=== PATIENT | female | born 1955 | race Two or more races ===

== ENCOUNTER 2019-05-10 19:54 | Emergency (ER) | payer OTHER ==
--- NOTE | 2019-05-10 20:00 | PDOC ---
Rapid Medical Evaluation Time Seen by Provider: 05/10/19 19:55 Medical Evaluation: Allergies Allergy/AdvReac Type Severity Reaction Status Date / Time No Known Allergies Allergy Verified 10/29/12 17:00 05/10/19 19:56 HPI: R ankle and lower leg pain after a fall yesterday, did not hit head; PE: No gross deficits blister R lateral ankle and lower leg ORDERS: x-rays Discharge Disposition - Diagnosis Leg pain - Referrals - Patient Instructions - Post Discharge Activity
[2019-05-10 20:02] VITALS: TEMP 98.7; BMI 32.3
--- NOTE | 2019-05-10 22:44 | PDOC ---
*Physical Exam - Vital Signs Last Vital Signs Temp Pulse Resp BP Pulse Ox 98.7 F 125 H 20 129/100 05/10/19 19:58 05/10/19 19:58 05/10/19 19:58 05/10/19 19:58 Medical Decision Making - Medical Decision Making 05/10/19 22:44 Patient seen by the advanced practice provider under my direct supervision. Ancillary testing reviewed as necessary. I agree with plan as outlined by the advanced practice provider. *DC/Admit/Observation/Transfer Diagnosis at time of Disposition: Closed right fibular fracture Qualifiers: Encounter type: initial encounter Fibula location: distal Fracture morphology: other fracture Qualified Code(s): S82.831A - Other fracture of upper and lower end of right fibula, initial encounter for closed fracture - Discharge Dispostion Disposition: HOME - Referrals Referrals: Heriberto Rivers MD [Staff Physician] - Call tomorrow - Patient Instructions Printed Discharge Instructions: How to Prevent Falls Additional Instructions: elevate your legs above the level of your heart when laying and sitting Non weight bear the leg, use crutches with walking you may take tylenol for pain follow up with an orthopedic doctor as soon as possible. return to the ER for any worsening symptoms. - Post Discharge Activity Forms/Work/School Notes: Back to Work
--- NOTE | 2019-05-10 23:04 | PDOC ---
History of Present Illness - General Chief Complaint: Injury Stated Complaint: INJURY Time Seen by Provider: 05/10/19 19:55 History Source: Patient - History of Present Illness Initial Comments: 05/10/19 23:27 63-year-old female with past medical history of hypertension complaining of trip and fall reporting [place]. Patient reports that since the injury patient has been weightbearing and walking up and down the stairs. Today with increased swelling to the right ankle with blistering where the shoes were rubbing against the ankle. Patient has sensation. Past History - Past Medical History Allergies/Adverse Reactions: Allergies Allergy/AdvReac Type Severity Reaction Status Date / Time No Known Allergies Allergy Verified 05/10/19 20:01 COPD: No - Suicide/Smoking/Psychosocial Hx Smoking Status: No Smoking History: Never smoked Number of Cigarettes Smoked Daily: 0 *Physical Exam - Vital Signs Last Vital Signs Temp Pulse Resp BP Pulse Ox 98.7 F 125 H 20 129/100 05/10/19 19:58 05/10/19 19:58 05/10/19 19:58 05/10/19 19:58 - Physical Exam General Appearance: Yes: Appropriately Dressed Respiratory/Chest: positive: Lungs Clear Extremity: positive: Other (swelling to right lower extremity/ ankle and foot, blisters to anterior portion of ankle due to friction from shoe. + senaation to toes, able to wiggle toes, foot warm to touch.) Neurologic: positive: Fully Oriented, Alert Procedures - Splinting Splint Location: Right: Ankle (posterior ankle splint) Hand-Made Type: orthoglass Post-Proc Neuro Vasc Exam: normal Fritz Bandage: 6" Complications: No Progress: 05/11/19 00:16 able to crutch walk ED Treatment Course - RADIOLOGY Radiology Studies Ordered: Category Date Time Status DUPLEX VASCUL US-1 LEG [US] Stat Ultrasound 05/10/19 23:03 Ordered Progress Note - Progress Note Progress Note: A: right fib fracture P: xray right distal fib fracture US: no dvt ortho follow up discussed see procedure note Medical Decision Making - Medical Decision Making 05/11/19 00:15 patient crutch walked without difficulty. patient is going to [facility] house due to stairs at her house. *DC/Admit/Observation/Transfer Diagnosis at time of Disposition: Closed right fibular fracture Qualifiers: Encounter type: initial encounter Fibula location: distal Fracture morphology: other fracture Qualified Code(s): S82.831A - Other fracture of upper and lower end of right fibula, initial encounter for closed fracture - Discharge Dispostion Disposition: HOME - Referrals Referrals: Heriberto Rivers MD [Staff Physician] - Call tomorrow - Patient Instructions Printed Discharge Instructions: How to Prevent Falls Additional Instructions: elevate your legs above the level of your heart when laying and sitting Non weight bear the leg, use crutches with walking you may take tylenol for pain follow up with an orthopedic doctor as soon as possible. return to the ER for any worsening symptoms. - Post Discharge Activity Forms/Work/School Notes: Back to Work
[2019-05-11] MEDS ORDERED: ACETAMINOPHEN 500 MG TABLET (FP) PO ONE (00:10)
[2019-05-11] MEDS ORDERED: ACETAMINOPHEN 500 MG TABLET (FP) ONE (00:15)
[2019-05-11 00:19] VITALS: BP 116/71; PULSE 90
== END 2019-05-11 00:22 | disposition home or self-care (01) ==
LOC: JER 19:54
PROC: 2W3QX1Z Immobilization of Right Lower Leg using Splint (ICD-10-PCS; principal; 2019-05-10)
DX: S82.831A Other fracture of upper and lower end of right fibula, initial encounter for closed fracture (principal); W01.0XXA Fall on same level from slipping, tripping and stumbling without subsequent striking against object, initial encounter; Y93.89 Activity, other specified; Y92.89 Other specified places as the place of occurrence of the external cause; I10 Essential (primary) hypertension
CPT/HCPCS: 73590-TC-RT-FY; 73610-TC-RT-FY; 73630-TC-RT-FY; 93971-TC; 99282-25

== ENCOUNTER 2019-05-13 13:10 | Inpatient (IN) | payer OTHER ==
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
[2019-05-13 14:43] LABS: BASO % 2.6 % (0-2.0); HEMATOCRIT 37.1 % (32.4-45.2); MCH 28.9 pg (25.7-33.7); MCHC 32.3 g/dl (32.0-36.0); MEAN CELL VOLUME 89.6 fl (80-96); MEAN PLT VOLUME 8.6 fl (7.5-11.1); MONO % 10.8 % (3.8-10.2); NEUT % 65.6 % (42.8-82.8); PLATELET COUNT 257 K/MM3 (134-434); RBC 4.14 M/mm3 (3.60-5.2); RDW 12.8 % (11.6-15.6); WHITE BLOOD COUNT 9.1 K/mm3 (4.0-10.8)
[2019-05-13] MEDS ORDERED: DIPHTH,PERTUSS(ACELL),TET 0.5 ML DISP.SYRIN IM ONE ×2 (14:46→15:07)
[2019-05-13 14:47] LABS: INR 1.18 (0.82-1.09); PROTHROMBIN TIME (PATIENT) 13.2 SEC (10.2-13.0)
[2019-05-13 15:28] LABS: ALBUMIN 3.5 g/dl (3.4-5.0); BILIRUBIN,TOTAL 0.7 mg/dl (0.2-1); CREATININE 0.5 mg/dl (0.55-1.3); POTASSIUM 4.3 mmol/L (3.5-5.1); TOT PROT 6.8 g/dl (6.4-8.2)
--- NOTE | 2019-05-13 15:43 | HP ---
CHIEF COMPLAINT: Right ankle pain, swelling, blistering PCP: HISTORY OF PRESENT ILLNESS: 63 year-old female with no reported PMH as she does not see a health care provider regularly. On 05/09/19 patient tripped and fell while walking in a park and felt immediate pain to her right ankle. She did not seek immediate care and continued to walk/weight bear on the ankle. On 05/10, patient presented to the [facility] ED and it was noted at that time that she had a blister on her right lateral ankle and lower leg which the patient attributed to friction from her shoe. Xray showed a distal fibular fracture with lateral swelling, and no soft tissue air. Duplex was negative for RLE DVT. The RLE was wrapped with justice bandage, patient was given crutches, told not to weight bear, and to follow up with an orthopedist. Patient continued wo walk/weight bear on the RLE on on she saw ortho Dr. Riddle in his office. He observed moderate to severe swelling with blood blisters both medially and laterally about the ankle. He treated her and then referred her to the [place] ED for admission as patient was unable to protect her ankle and given the risk of skin breakdown and infection. ER course was notable for: (1) CT RLE: trimalleolar fracture of the right ankle with comminuted distal fibular fracture and chip fractures of the medial and posterior malleoli; no evidence of subq emphysema Recent Travel: No PAST MEDICAL HISTORY: None reported PAST SURGICAL HISTORY: None reported Social History: Smoking: Alcohol: Drugs: Allergies No Known Allergies Allergy (Verified 05/13/19 13:11) HOME MEDICATIONS: REVIEW OF SYSTEMS CONSTITUTIONAL: Absent: fever, chills, diaphoresis, generalized weakness, malaise, loss of appetite, weight change HEENT: Absent: rhinorrhea, nasal congestion, throat pain, throat swelling, difficulty swallowing, mouth swelling, ear pain, eye pain, visual changes CARDIOVASCULAR: Absent: chest pain, syncope, palpitations, irregular heart rate, lightheadedness , peripheral edema RESPIRATORY: Absent: cough, shortness of breath, dyspnea with exertion, orthopnea, wheezing, stridor, hemoptysis GASTROINTESTINAL: Absent: abdominal pain, abdominal distension, nausea, vomiting, diarrhea, constipation, melena, hematochezia GENITOURINARY: Absent: dysuria, frequency, urgency, hesitancy, hematuria, flank pain, genital pain MUSCULOSKELETAL: +pain RLE Absent: myalgia, arthralgia, joint swelling, back pain, neck pain SKIN: +blisters right ankle, circumferential Absent: rash, itching, pallor HEMATOLOGIC/IMMUNOLOGIC: Absent: easy bleeding, easy bruising, lymphadenopathy, frequent infections ENDOCRINE: Absent: unexplained weight gain, unexplained weight loss, heat intolerance, cold intolerance NEUROLOGIC: Absent: headache, focal weakness or paresthesias, dizziness, unsteady gait, seizure, mental status changes, bladder or bowel incontinence PSYCHIATRIC: Absent: anxiety, depression, suicidal or homicidal ideation, hallucinations. PHYSICAL EXAMINATION Vital Signs - 24 hr 05/13/19 13:10 Temperature 97.8 F Pulse Rate 89 Respiratory 16 Rate Blood Pressure 123/83 O2 Sat by Pulse 98 Oximetry (%) GENERAL: Awake, alert, and fully oriented, in no acute distress. HEAD: Normal with no signs of trauma. EYES: Pupils equal, round and reactive to light, extraocular movements intact, sclera anicteric, conjunctiva clear. No lid lag. LUNGS: Breath sounds equal, clear to auscultation bilaterally. No wheezes, and no crackles. No accessory muscle use. HEART: Regular rate and rhythm, normal S1 and S2 ABDOMEN: Soft, nontender, not distended UPPER EXTREMITIES: 2+ pulses, warm, well-perfused. No cyanosis. No clubbing. No peripheral edema. LLE: 2+ pulses, warm, well-perfused. No calf tenderness. No peripheral edema. RLE: severe swelling entire foot and ankle, warm NEUROLOGICAL: Cranial nerves II-XII intact. Normal speech. Normal gait. PSYCHIATRIC: Cooperative. Good eye contact. Appropriate mood and affect. SKIN: Warm, dry, normal turgor, no rashes or lesions noted, normal capillary refill. Laboratory Results - last 24 hr 05/13/19 05/13/19 14:20 14:20 WBC 9.1 RBC 4.14 Hgb 12.0 Hct 37.1 MCV 89.6 MCH 28.9 MCHC 32.3 RDW 12.8 Plt Count 257 MPV 8.6 Absolute Neuts (auto) 5.9 Neutrophils % 65.6 Lymphocytes % 19.0 Monocytes % 10.8 H Eosinophils % 2.0 Basophils % 2.6 H PT with INR 13.2 H INR 1.18 ASSESSMENT/PLAN: 63 year-old female with no reported PMH as she does not see a health care provider regularly. Admitted for right ankle/fib fracture. Right trimalleolar fracture with comminuted distal fibular fracture Severe swelling Large fluid-filled blisters --no weight bearing --concern for infection, start empiric Zosyn, Vanc, ID to follow --vascular consult placed for Dr. Arreola --ortho Dr. Riddle following Visit type - Emergency Visit Emergency Visit: Yes ED Registration Date: 05/13/19 Care time: The patient presented to the Emergency Department on the above date and was hospitalized for further evaluation of their emergent condition. - New Patient This patient is new to me today: Yes Date on this admission: 05/16/19 - Critical Care Critical Care patient: No
--- NOTE | 2019-05-13 16:17 | CON.ID ---
Consult Consult Specialty:: infectious diseases Referred by:: kaycee Siddiqui Reason for Consultation:: r/o infected blisters on the leg - History of Present Illness Chief Complaint: pain swelling and blister formation of the foot History of Present Illness: 63-year-old female diagnosed with a lateral malleolar fracture at [facility] emergency department earlier in the week. She was discharged home with crutches. She walked on the ankle since being discharged. Patient noticed increasing itching and discomfort in the ankle. patient then went to the office and was c/o of severe pain . Her splint was removed demonstrating moderate to severe swelling with blood blisters both medially and laterally about the ankle. She denies any numbness or tingling. patient then cam to mariya freddy because the pain was severe and patient not able to bear weight on it she also has developed swelling of the leg and huge blisters which looks like blood filled - History Source History Provided By: Patient Limitations to Obtaining History: No Limitations - Alcohol/Substance Use Hx Alcohol Use: No - Smoking History Smoking history: Never smoked Have you smoked in the past 12 months: No Aproximately how many cigarettes per day: 0 Home Medications - Allergies Allergies/Adverse Reactions: Allergies Allergy/AdvReac Type Severity Reaction Status Date / Time No Known Allergies Allergy Verified 05/13/19 13:11 Review of Systems - Review of Systems Constitutional: reports: No Symptoms Eyes: reports: No Symptoms HENT: reports: No Symptoms Cardiovascular: reports: No Symptoms Respiratory: reports: No Symptoms Gastrointestinal: reports: No Symptoms Genitourinary: reports: No Symptoms Breasts: reports: No Symptoms Reported Musculoskeletal: reports: Joint Swelling, Muscle Pain, Other Integumentary: reports: Blister, Change in Color, Erythema Neurological: reports: No Symptoms Endocrine: reports: No Symptoms Hematology/Lymphatic: reports: No Symptoms Psychiatric: reports: No Symptoms Physical Exam Vital Signs: Vital Signs Temperature 97.8 F 05/13/19 13:10 Pulse Rate 89 05/13/19 13:10 Respiratory Rate 16 05/13/19 13:10 Blood Pressure 123/83 05/13/19 13:10 O2 Sat by Pulse Oximetry (%) 98 05/13/19 13:10 Constitutional: Yes: Well Nourished, Calm, Moderate Distress Eyes: Yes: Conjunctiva Clear HENT: Yes: Atraumatic, Normocephalic Neck: Yes: Supple, Trachea Midline Cardiovascular: Yes: Regular Rate and Rhythm Respiratory: Yes: Regular, CTA Bilaterally Gastrointestinal: Yes: Normal Bowel Sounds, Soft Musculoskeletal: Yes: Other Extremities: Yes: Erythema, Other Integumentary: Yes: Erythema, Other (blisters and swelling of the ankle) Neurological: Yes: Alert, Oriented Psychiatric: Yes: Alert, Oriented Labs: CBC, BMP 05/13/19 14:20 05/13/19 14:20 Imaging - Results Chest X-ray: Report Reviewed, Image Reviewed Assessment/Plan rt ankle fracture with blister formation we will wait for ct scan to occur i am worried that the patient might have displaced fracture going to give abx prophylactically once final plan is made can stop the abx and monitor
--- NOTE | 2019-05-13 16:24 | PN ---
Progress Note (short form) - Note Progress Note: 63-year-old female was seen earlier today in the office. Patient had been diagnosed with a lateral malleolar fracture at [facility] emergency department earlier in the week. She was discharged home with crutches. She walked on the ankle since being discharged. She notes increasing itching and discomfort in the ankle. On presenting to the office today, she was screaming in pain. Her splint was removed demonstrating moderate to severe swelling with blood blisters both medially and laterally about the ankle. She denies any numbness or tingling. In the office, she was placed into a very well-padded AO type splint after dressing her wounds with Xeroform dressing. Given that she was unable to protect her ankle and given the risk of skin breakdown at this time, it was felt that admission was the only way to adequately treat her. Radiographs were taken after splinting to ensure that the ankle is in a satisfactory position. Physical examination: The patient is now seen to have a AO type splint in place. Her toes have sensation, capillary refill and motion intact. Assessment: Unstable right ankle fracture Skin breakdown with blood blisters Patient unable to safely mobilize Plan: I discussed today's findings with the patient. I advised her that her skin is more damaged then the actual bony structures within the ankle. I do anticipate that the ankle will require open reduction internal fixation however, she is not safe to do so at this time. She is to be strictly nonweightbearing. She will require wound care every other day. We will plan on Thursday to take down her dressings and inspect her wounds. She will likely require 2-3 weeks of care before being safe to proceed with surgery. She may require a stay in a SNF prior to surgery given her limited ability to protect herself while weightbearing. She should start on physical therapy to help her mobilize independently. When not mobilizing, she should be elevating the limb on a pillow.
[2019-05-13] MEDS ORDERED: VANCOMYCIN 1,000 MG VIAL (RESTRICTED TO ID ONLY) ONE (16:25)
[2019-05-13] MEDS ORDERED: VANCOMYCIN 500 MG VIAL (RESTRICTED TO ID ONLY) ONE (16:25)
[2019-05-13] MEDS: VANCOMYCIN HCL 1,250 MG in DEXTROSE 5%-WATER - 250 ML IVPB SCH (16:55)
[2019-05-13 17:38] VITALS: BMI 32.9
[2019-05-13] MEDS ORDERED: DEXTROSE 5%-WATER - 50 ML IVPB ONE (18:43)
[2019-05-13] MEDS ORDERED: PIPERACILLIN/TAZOBACTAM 3.375 GM VIAL IVPB ONE (18:43)
[2019-05-13] MEDS: ENOXAPARIN NA (PORCINE) 40 MG/0.4 ML DISP.SYRIN SQ SCH ×2 (18:49→22:23)
[2019-05-13] MEDS: PIPERACILLIN/TAZOB 3.375 GM 3.375 GM in DEXTROSE 5%-WATER - 50 ML IVPB SCH (18:49)
[2019-05-14] MEDS ORDERED: PIPERACILLIN/TAZOBACTAM 3.375 GM VIAL IVPB ONE ×3 (01:59→17:23)
[2019-05-14] MEDS ORDERED: DEXTROSE 5%-WATER - 50 ML IVPB ONE ×3 (01:59→17:23)
[2019-05-14] MEDS: PIPERACILLIN/TAZOB 3.375 GM 3.375 GM in DEXTROSE 5%-WATER - 50 ML IVPB SCH ×3 (02:25→17:30)
[2019-05-14 08:53] LABS: BASO % 0.3 % (0-2.0); EOS % 7.2 % (0-4.5); HEMATOCRIT 34.7 % (32.4-45.2); HEMOGLOBIN 11.4 GM/dl (10.7-15.3); LYMPH % 21.2 % (8-40); MCH 29.2 pg (25.7-33.7); MCHC 32.9 g/dl (32.0-36.0); MEAN CELL VOLUME 88.7 fl (80-96); MEAN PLT VOLUME 8.8 fl (7.5-11.1); MONO % 10.5 % (3.8-10.2); NEUT % 60.8 % (42.8-82.8); PLATELET COUNT 261 K/MM3 (134-434); RBC 3.91 M/mm3 (3.60-5.2); RDW 12.7 % (11.6-15.6); WHITE BLOOD COUNT 7.2 K/mm3 (4.0-10.8)
[2019-05-14 08:57] LABS: BILIRUBIN,TOTAL 0.6 mg/dl (0.2-1); CALCIUM 8.7 mg/dl (8.5-10); CREATININE 0.5 mg/dl (0.55-1.3); MAGNESIUM 2.2 mg/dL (1.8-2.4); POTASSIUM 4.2 mmol/L (3.5-5.1); TOT PROT 5.8 g/dl (6.4-8.2)
[2019-05-14 09:22] LABS: ACTIVATED PTT 32.1 SECONDS (25.2-36.5)
[2019-05-14 09:27] LABS: INR 1.18 (0.82-1.09); PROTHROMBIN TIME (PATIENT) 13.2 SEC (10.2-13.0)
[2019-05-14] MEDS: ENOXAPARIN NA (PORCINE) 40 MG/0.4 ML DISP.SYRIN SQ SCH (09:39)
--- NOTE | 2019-05-14 09:56 | PN ---
Progress Note, Physician Chief Complaint: Rt ankle pain - Current Medication List Current Medications: Active Medications Enoxaparin Sodium (Lovenox -) 40 mg SQ DAILY NINOSKA Last Admin: 05/14/19 09:39 Dose: 40 mg Vancomycin HCl 1,250 mg/ (Dextrose) 250 mls @ 250 mls/2 hr IVPB Q24H NINOSKA; Protocol Last Admin: 05/13/19 16:55 Dose: 250 mls/2 hr Piperacillin Sod/Tazobactam (Sod 3.375 gm/ Dextrose) 50 mls @ 100 mls/hr IVPB Q8H-IV NINOSKA; Protocol Last Admin: 05/14/19 09:38 Dose: 100 mls/hr - Objective Vital Signs: Vital Signs Temperature 98.0 F 05/14/19 06:00 Pulse Rate 83 05/14/19 06:00 Respiratory Rate 16 05/14/19 07:56 Blood Pressure 123/71 05/14/19 06:00 O2 Sat by Pulse Oximetry (%) 98 05/14/19 07:56 Middle aged F not in distress HEENT: Mm moist, no anemia, PERRLA EOMI NECK: No JVd No Bruit CHEST: CTA B/L CVs; s1S2 R no m/g/r ABD: No distention, non tender EXT: Rt ankle swelling and blisters 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 non focal Labs: CBC, BMP 05/14/19 07:40 05/14/19 07:40 INR, PTT INR 1.18 (0.82-1.09) 05/14/19 07:40 Problem List - Problems (1) Closed right fibular fracture Assessment/Plan: Elevation, pain control F/u ortho recommendations Code(s): S82.401A - UNSP FRACTURE OF SHAFT OF RIGHT FIBULA, INIT FOR CLOS FX Qualifiers: Encounter type: initial encounter Fibula location: distal Fracture morphology: unspecified fracture morphology Qualified Code(s): S82.831A - Other fracture of upper and lower end of right fibula, initial encounter for closed fracture (2) Cellulitis Assessment/Plan: Cont IV abx as per ID elevation of the limb. Code(s): L03.90 - CELLULITIS, UNSPECIFIED Qualifiers: Site of cellulitis: extremity Site of cellulitis of extremity: lower extremity Laterality: right Qualified Code(s): L03.115 - Cellulitis of right lower limb
--- NOTE | 2019-05-14 11:28 | PN ---
Progress Note, Physician History of Present Illness: Pt is alert, afebrile. C/O Rt ankle pain. - Current Medication List Current Medications: Active Medications Acetaminophen (Tylenol -) 650 mg PO Q4H PRN PRN Reason: PAIN Enoxaparin Sodium (Lovenox -) 40 mg SQ DAILY NINOSKA Last Admin: 05/14/19 09:39 Dose: 40 mg Vancomycin HCl 1,250 mg/ (Dextrose) 250 mls @ 250 mls/2 hr IVPB Q24H NINOSKA; Protocol Last Admin: 05/13/19 16:55 Dose: 250 mls/2 hr Piperacillin Sod/Tazobactam (Sod 3.375 gm/ Dextrose) 50 mls @ 100 mls/hr IVPB Q8H-IV NINOSKA; Protocol Last Admin: 05/14/19 09:38 Dose: 100 mls/hr - Objective Vital Signs: Vital Signs Temperature 98.6 F 05/14/19 10:00 Pulse Rate 85 05/14/19 10:00 Respiratory Rate 18 05/14/19 10:00 Blood Pressure 123/58 L 05/14/19 10:00 O2 Sat by Pulse Oximetry (%) 96 05/14/19 10:00 Constitutional: Yes: No Distress, Calm Cardiovascular: Yes: Regular Rate and Rhythm Respiratory: Yes: Regular Gastrointestinal: Yes: Normal Bowel Sounds, Soft Extremities: Yes: Erythema (RLE) Edema: Yes (RLE) Wound/Incision: Yes: Dressing Dry and Intact (Rt ankle/foot edema/warmth/ erythema) Neurological: Yes: Alert Labs: CBC, BMP 05/14/19 07:40 05/14/19 07:40 INR, PTT INR 1.18 (0.82-1.09) 05/14/19 07:40 wound culture- results pending - ....Imaging Cat Scan: Report Reviewed Problem List - Problems (1) Cellulitis Code(s): L03.90 - CELLULITIS, UNSPECIFIED Qualifiers: Site of cellulitis: extremity Site of cellulitis of extremity: lower extremity Laterality: right Qualified Code(s): L03.115 - Cellulitis of right lower limb (2) Closed right fibular fracture Code(s): S82.401A - UNSP FRACTURE OF SHAFT OF RIGHT FIBULA, INIT FOR CLOS FX Qualifiers: Encounter type: initial encounter Fibula location: distal Fracture morphology: unspecified fracture morphology Qualified Code(s): S82.831A - Other fracture of upper and lower end of right fibula, initial encounter for closed fracture (3) Friction blisters of the skin Code(s): T14.8XXA - OTHER INJURY OF UNSPECIFIED BODY REGION, INITIAL ENCOUNTER Assessment/Plan Malleolar and distal fibula fractures RLE cellulitis --continue antibiotics for now, tolerating --Vancomycin level --continue wound care --wound culture results pending
[2019-05-14] MEDS: VANCOMYCIN HCL 1,250 MG in DEXTROSE 5%-WATER - 250 ML IVPB SCH (16:27)
[2019-05-15] MEDS: PIPERACILLIN/TAZOB 3.375 GM 3.375 GM in DEXTROSE 5%-WATER - 50 ML IVPB SCH ×3 (02:00→18:25)
[2019-05-15] MEDS ORDERED: DEXTROSE 5%-WATER - 50 ML IVPB ONE ×3 (03:02→17:12)
[2019-05-15] MEDS ORDERED: PIPERACILLIN/TAZOBACTAM 3.375 GM VIAL IVPB ONE ×3 (03:02→17:12)
[2019-05-15 08:54] LABS: BASO % 0.3 % (0-2.0); CALCIUM 8.6 mg/dl (8.5-10); CREATININE 0.5 mg/dl (0.55-1.3); EOS % 9.4 % (0-4.5); HEMATOCRIT 35.3 % (32.4-45.2); HEMOGLOBIN 11.6 GM/dl (10.7-15.3); LYMPH % 24.7 % (8-40); MCH 29.4 pg (25.7-33.7); MEAN CELL VOLUME 89.3 fl (80-96); MEAN PLT VOLUME 9.1 fl (7.5-11.1); MONO % 10.5 % (3.8-10.2); NEUT % 55.1 % (42.8-82.8); PLATELET COUNT 253 K/MM3 (134-434); POTASSIUM 4.4 mmol/L (3.5-5.1); RBC 3.96 M/mm3 (3.60-5.2); RDW 12.8 % (11.6-15.6); WHITE BLOOD COUNT 7.4 K/mm3 (4.0-10.8)
--- NOTE | 2019-05-15 09:48 | PN ---
Physical Exam: HPI 63-year-old female diagnosed with a lateral malleolar fracture at [facility] emergency department earlier in the week. She was discharged home with crutches. She walked on the ankle since being discharged. Patient noticed increasing itching and discomfort in the ankle. patient then went to the office and was c/o of severe pain. Her splint was removed demonstrating moderate to severe swelling with blood blisters both medially and laterally about the ankle. She denies any numbness or tingling. Patient then came to [place] because the pain was severe and patient not able to bear weight on it she also has developed swelling of the leg and huge blisters which looks like blood filled SUBJECTIVE: Patient seen and examined. Right ankle Pain is 4/10 resting in chair. Denies CP, Fever, Chills, N/v/D OBJECTIVE: Vital Signs Period Temp Pulse Resp BP Sys/Valadez Pulse Ox Last 24 Hr 97.7 F-98.8 F 78-86 16-19 107-142/58-79 96-96 Constitutional: Yes: No Distress, Calm Cardiovascular: Yes: Regular Rate and Rhythm Respiratory: Yes: Regular Gastrointestinal: Yes: Normal Bowel Sounds, Soft Genitourinary: Yes: WNL Extremities: Yes: Other (RLE edema, less erythema, +mild tenderness. +blood filled blisters medial and lateral ankle) Neurological: Yes: Alert Laboratory Results - last 24 hr 05/15/19 05/15/19 06:00 06:00 WBC 7.4 RBC 3.96 Hgb 11.6 Hct 35.3 MCV 89.3 MCH 29.4 MCHC 33.0 RDW 12.8 Plt Count 253 MPV 9.1 Absolute Neuts (auto) 4.1 Neutrophils % 55.1 Lymphocytes % 24.7 Monocytes % 10.5 H Eosinophils % 9.4 H Basophils % 0.3 Sodium 140 Potassium 4.4 Chloride 104 Carbon Dioxide 27 Anion Gap 9 BUN 10.0 Creatinine 0.5 L Est GFR (CKD-EPI)AfAm 117.71 Est GFR (CKD-EPI)NonAf 101.56 Random Glucose 87 Calcium 8.6 Active Medications Generic Name Dose Route Start Last Admin Trade Name Freq PRN Reason Stop Dose Admin Acetaminophen 650 mg 05/14/19 09:56 Tylenol - PO Q4H PRN PAIN Enoxaparin Sodium 40 mg 05/13/19 18:45 05/14/19 09:39 Lovenox - SQ 40 mg DAILY NINOSKA Administration Vancomycin HCl 1,250 mg/ 250 mls @ 250 mls/2 hr 05/13/19 16:15 05/14/19 16:27 Dextrose IVPB 250 mls/2 hr Q24H NINOSKA Administration Protocol Piperacillin Sod/Tazobactam 50 mls @ 100 mls/hr 05/13/19 18:00 05/15/19 02:00 Sod 3.375 gm/ Dextrose IVPB 100 mls/hr Q8H-IV NINOSKA Administration Protocol ASSESSMENT/PLAN: 63 year old female s/p Fall 05/09 Seen in ED at [facility] 05/10 with blister on right lateral ankle and lower leg on physical exam reportedly from friction from shoe 05/10 Right ankle: distal fibular fracture with lateral swelling; no soft sissue air; +swelling 05/10 Duplex: negative for right LE DVT Wrapped with justice bandage, crutches, released, told not to weight bear Closed right fibular fracture -Elevation, pain control F/u ortho recommendations Cellulitis -Cont IV Zosyn -DC Vanco per ID -Start Lactobacillus PO Daily -ID Following DVT Proph -Lovenox 40mg daily FEN -PO intake adequate - Dispo -Inpatient -Full Code Visit type - Emergency Visit Emergency Visit: Yes ED Registration Date: 05/13/19 Care time: The patient presented to the Emergency Department on the above date and was hospitalized for further evaluation of their emergent condition. - New Patient This patient is new to me today: Yes Date on this admission: 05/15/19 - Critical Care Critical Care patient: No - Discharge Referral Referred to [facility] No Physician Referral: Clifford Richardson MD ([facility])
[2019-05-15] MEDS: ACETAMINOPHEN 325 MG TABLET (FP) PO PRN ×2 (09:55→22:08)
[2019-05-15] MEDS: ENOXAPARIN NA (PORCINE) 40 MG/0.4 ML DISP.SYRIN SQ SCH (09:56)
[2019-05-15] MEDS: LACTOBACILLUS ACIDOPHILUS 1 TABLET PO SCH (11:15)
--- NOTE | 2019-05-15 12:23 | PN ---
Progress Note, Physician History of Present Illness: Pt alert, afebrile. States Rt ankle/LE feels better. Is less erythematous. No other complaints. - Current Medication List Current Medications: Active Medications Acetaminophen (Tylenol -) 650 mg PO Q4H PRN PRN Reason: PAIN Last Admin: 05/15/19 09:55 Dose: 650 mg Enoxaparin Sodium (Lovenox -) 40 mg SQ DAILY NINOSKA Last Admin: 05/15/19 09:56 Dose: 40 mg Vancomycin HCl 1,250 mg/ (Dextrose) 250 mls @ 250 mls/2 hr IVPB Q24H NINOSKA; Protocol Last Admin: 05/14/19 16:27 Dose: 250 mls/2 hr Piperacillin Sod/Tazobactam (Sod 3.375 gm/ Dextrose) 50 mls @ 100 mls/hr IVPB Q8H-IV NINOSKA; Protocol Last Admin: 05/15/19 09:56 Dose: 100 mls/hr Lactobacillus Acidophilus (Bacid -) 1 tab PO DAILY NINOSKA - Objective Vital Signs: Vital Signs Temperature 97.9 F 05/15/19 10:00 Pulse Rate 87 05/15/19 10:00 Respiratory Rate 18 05/15/19 10:00 Blood Pressure 144/93 05/15/19 10:00 O2 Sat by Pulse Oximetry (%) 98 05/15/19 10:00 Constitutional: Yes: No Distress, Calm Cardiovascular: Yes: Regular Rate and Rhythm Respiratory: Yes: Regular Gastrointestinal: Yes: Normal Bowel Sounds, Soft Genitourinary: Yes: WNL Extremities: Yes: Other (RLE edema, less erythema, +mild tenderness. +blood filled blisters medial and lateral ankle) Neurological: Yes: Alert Labs: CBC, BMP 05/15/19 06:00 05/15/19 06:00 INR, PTT INR 1.18 (0.82-1.09) 05/14/19 07:40 Microbiology 05/13/19 16:50 Ankle - Right Wound Culture - Preliminary Lactose Fermenting Neg Bacilli Lactose Fermenting Neg Bacilli#2 Pending Organism Pending Organism#2 Problem List - Problems (1) Cellulitis Code(s): L03.90 - CELLULITIS, UNSPECIFIED Qualifiers: Site of cellulitis: extremity Site of cellulitis of extremity: lower extremity Laterality: right Qualified Code(s): L03.115 - Cellulitis of right lower limb (2) Closed right fibular fracture Code(s): S82.401A - UNSP FRACTURE OF SHAFT OF RIGHT FIBULA, INIT FOR CLOS FX Qualifiers: Encounter type: initial encounter Fibula location: distal Fracture morphology: unspecified fracture morphology Qualified Code(s): S82.831A - Other fracture of upper and lower end of right fibula, initial encounter for closed fracture (3) Friction blisters of the skin Code(s): T14.8XXA - OTHER INJURY OF UNSPECIFIED BODY REGION, INITIAL ENCOUNTER Assessment/Plan Malleolar and distal fibula fractures Possible RLE cellulitis -- d/c Vancomycin, continue Zosyn for now -- f/u wound culture isolates -- elevate leg -- no draining wounds at this time -- consider Orthopedics evaluation
--- NOTE | 2019-05-15 13:55 | PN ---
Progress Note, Physician History of Present Illness: feels well. sitting in chair. RLE elevated. took splint and dressing off. - Current Medication List Current Medications: Active Medications Acetaminophen (Tylenol -) 650 mg PO Q4H PRN PRN Reason: PAIN Last Admin: 05/15/19 09:55 Dose: 650 mg Enoxaparin Sodium (Lovenox -) 40 mg SQ DAILY NINOSKA Last Admin: 05/15/19 09:56 Dose: 40 mg Piperacillin Sod/Tazobactam (Sod 3.375 gm/ Dextrose) 50 mls @ 100 mls/hr IVPB Q8H-IV NINOSKA; Protocol Last Admin: 05/15/19 09:56 Dose: 100 mls/hr Lactobacillus Acidophilus (Bacid -) 1 tab PO DAILY NINOSKA Last Admin: 05/15/19 11:15 Dose: 1 tab - Objective Vital Signs: Vital Signs Temperature 97.9 F 05/15/19 10:00 Pulse Rate 87 05/15/19 10:00 Respiratory Rate 18 05/15/19 10:00 Blood Pressure 144/93 05/15/19 10:00 O2 Sat by Pulse Oximetry (%) 98 05/15/19 10:00 Constitutional: Yes: Well Nourished, No Distress, Calm Musculoskeletal: Yes: Other (right ankle: moderate edema of the ankle. large blister laterally/anteriorly along the ankle. No open wounds. Compartments soft. NVID) Labs: CBC, BMP 05/15/19 06:00 05/15/19 06:00 INR, PTT INR 1.18 (0.82-1.09) 05/14/19 07:40 Assessment/Plan Right ankle fracture -Continue elevation. I have recommended a splint to stabilize the fracture. She states she wants to leave the skin open to the air. She has refused any dressing or splint on the ankle. -NWB RLE -pain control -will reevaluate tomorrow
[2019-05-16] MEDS ORDERED: PIPERACILLIN/TAZOBACTAM 3.375 GM VIAL IVPB ONE ×3 (01:10→17:08)
[2019-05-16] MEDS ORDERED: DEXTROSE 5%-WATER - 50 ML IVPB ONE ×3 (01:10→17:08)
[2019-05-16] MEDS: PIPERACILLIN/TAZOB 3.375 GM 3.375 GM in DEXTROSE 5%-WATER - 50 ML IVPB SCH ×3 (01:17→17:28)
--- NOTE | 2019-05-16 06:22 | PN ---
Physical Exam: SUBJECTIVE: Patient seen and examined OBJECTIVE: Vital Signs Period Temp Pulse Resp BP Sys/Valadez Pulse Ox Last 24 Hr 97.6 F-99.2 F 86-105 18-18 126-149/70-93 95-100 GENERAL: The patient is awake, alert, and fully oriented, in no acute distress. HEAD: Normal with no signs of trauma. EYES: PERRL, extraocular movements intact, sclera anicteric, conjunctiva clear. No ptosis. ENT: Ears normal, nares patent, oropharynx clear without exudates, moist mucous membranes. NECK: Trachea midline, full range of motion, supple. LUNGS: Breath sounds equal, clear to auscultation bilaterally, no wheezes, no crackles, no accessory muscle use. HEART: Regular rate and rhythm, S1, S2 without murmur, rub or gallop. ABDOMEN: Soft, nontender, nondistended, normoactive bowel sounds, no guarding, no rebound, no hepatosplenomegaly, no masses. EXTREMITIES: 2+ pulses, warm, well-perfused, no edema. NEUROLOGICAL: Cranial nerves II through XII grossly intact. Normal speech, gait not observed. PSYCH: Normal mood, normal affect. SKIN: Warm, dry, normal turgor, no rashes or lesions noted Laboratory Results - last 24 hr 05/15/19 05/15/19 06:00 06:00 WBC 7.4 RBC 3.96 Hgb 11.6 Hct 35.3 MCV 89.3 MCH 29.4 MCHC 33.0 RDW 12.8 Plt Count 253 MPV 9.1 Absolute Neuts (auto) 4.1 Neutrophils % 55.1 Lymphocytes % 24.7 Monocytes % 10.5 H Eosinophils % 9.4 H Basophils % 0.3 Sodium 140 Potassium 4.4 Chloride 104 Carbon Dioxide 27 Anion Gap 9 BUN 10.0 Creatinine 0.5 L Est GFR (CKD-EPI)AfAm 117.71 Est GFR (CKD-EPI)NonAf 101.56 Random Glucose 87 Calcium 8.6 Active Medications Generic Name Dose Route Start Last Admin Trade Name Freq PRN Reason Stop Dose Admin Acetaminophen 650 mg 05/14/19 09:56 05/15/19 22:08 Tylenol - PO 650 mg Q4H PRN Administration PAIN Enoxaparin Sodium 40 mg 05/13/19 18:45 05/15/19 09:56 Lovenox - SQ 40 mg DAILY NINOSKA Administration Piperacillin Sod/Tazobactam 50 mls @ 100 mls/hr 05/13/19 18:00 05/16/19 01:17 Sod 3.375 gm/ Dextrose IVPB 100 mls/hr Q8H-IV NINOSKA Administration Protocol Lactobacillus Acidophilus 1 tab 05/15/19 10:45 05/15/19 11:15 Bacid - PO 1 tab DAILY NINOSKA Administration ASSESSMENT/PLAN: 63 year-old female with no reported PMH as she does not see a health care provider regularly. Admitted for right ankle/fib fracture. Right trimalleolar fracture with comminuted distal fibular fracture Severe swelling Large fluid-filled blisters --no weight bearing --advised by staff patient popped the largest blister on her ankle yesterday and then refused to allow the staff to dress the wound --on exam today, flaps of tissue adhered to the subdermal level; patient insistent on no dressing be placed because "it is general knowledge oxygen cures wounds." Lengthy discussion with patient who finally acceded to topical dressing; she also agreed to continuing IV antibiotics --xrays taken today, pending read --ID, vascular, ortho following DVT prophylaxis: subq heparin Visit type - Emergency Visit Emergency Visit: Yes ED Registration Date: 05/13/19 Care time: The patient presented to the Emergency Department on the above date and was hospitalized for further evaluation of their emergent condition. - New Patient This patient is new to me today: No - Critical Care Critical Care patient: No
[2019-05-16 07:57] LABS: BASO % 0.3 % (0-2.0); EOS % 5.5 % (0-4.5); HEMOGLOBIN 11.4 GM/dl (10.7-15.3); LYMPH % 17.7 % (8-40); MCH 29.6 pg (25.7-33.7); MCHC 33.5 g/dl (32.0-36.0); MEAN CELL VOLUME 88.3 fl (80-96); MEAN PLT VOLUME 8.7 fl (7.5-11.1); MONO % 9.6 % (3.8-10.2); NEUT % 66.9 % (42.8-82.8); PLATELET COUNT 277 K/MM3 (134-434); RBC 3.85 M/mm3 (3.60-5.2); RDW 12.4 % (11.6-15.6); WHITE BLOOD COUNT 8.2 K/mm3 (4.0-10.8)
[2019-05-16 08:03] LABS: ALBUMIN 2.9 g/dl (3.4-5.0); BILIRUBIN,TOTAL 0.5 mg/dl (0.2-1); CALCIUM 8.7 mg/dl (8.5-10); CREATININE 0.5 mg/dl (0.55-1.3); TOT PROT 6.1 g/dl (6.4-8.2)
[2019-05-16] MEDS: LACTOBACILLUS ACIDOPHILUS 1 TABLET PO SCH (09:28)
[2019-05-16] MEDS: ENOXAPARIN NA (PORCINE) 40 MG/0.4 ML DISP.SYRIN SQ SCH (09:28)
--- NOTE | 2019-05-16 13:25 | EKG ---
Test Reason : Blood Pressure : / mmHG Vent. Rate : 083 BPM Atrial Rate : 083 BPM P-R Int : 132 ms QRS Dur : 084 ms QT Int : 372 ms P-R-T Axes : 049 034 025 degrees QTc Int : 437 ms NORMAL SINUS RHYTHM NORMAL ECG WHEN COMPARED WITH ECG OF 10-FEB-2011 15:23, SINUS RHYTHM HAS REPLACED ECTOPIC ATRIAL RHYTHM NONSPECIFIC T WAVE ABNORMALITY, IMPROVED IN INFERIOR LEADS Confirmed by DAVID DAVE, MARIA C ([id number]) on 05/16/2019 1:24:35 PM Referred By: SU DEVRIES Confirmed By:MARIA C HERNANDEZ MD
--- NOTE | 2019-05-16 14:39 | PN ---
Progress Note, Physician History of Present Illness: stable no issues xray of the ankle today wound cx noted - Current Medication List Current Medications: Active Medications Acetaminophen (Tylenol -) 650 mg PO Q4H PRN PRN Reason: PAIN Last Admin: 05/15/19 22:08 Dose: 650 mg Enoxaparin Sodium (Lovenox -) 40 mg SQ DAILY NINOSKA Last Admin: 05/16/19 09:28 Dose: 40 mg Piperacillin Sod/Tazobactam (Sod 3.375 gm/ Dextrose) 50 mls @ 100 mls/hr IVPB Q8H-IV NINOSKA; Protocol Last Admin: 05/16/19 09:27 Dose: 100 mls/hr Lactobacillus Acidophilus (Bacid -) 1 tab PO DAILY NINOSKA Last Admin: 05/16/19 09:28 Dose: 1 tab - Objective Vital Signs: Vital Signs Temperature 97.7 F 05/16/19 14:08 Pulse Rate 98 H 05/16/19 14:08 Respiratory Rate 18 05/16/19 14:08 Blood Pressure 118/57 L 05/16/19 14:08 O2 Sat by Pulse Oximetry (%) 99 05/16/19 14:08 Constitutional: Yes: No Distress, Calm Cardiovascular: Yes: Regular Rate and Rhythm Respiratory: Yes: Regular, CTA Bilaterally Gastrointestinal: Yes: Normal Bowel Sounds, Soft Musculoskeletal: Yes: WNL Extremities: Yes: Other Integumentary: Yes: Erythema Wound/Incision: Yes: Dressing Dry and Intact Neurological: Yes: Alert, Oriented Psychiatric: Yes: Alert, Oriented Labs: CBC, BMP 05/16/19 07:05 05/16/19 07:05 INR, PTT INR 1.18 (0.82-1.09) 05/14/19 07:40 Assessment/Plan - Problems (1) Cellulitis Code(s): L03.90 - CELLULITIS, UNSPECIFIED Qualifiers: Site of cellulitis: extremity Site of cellulitis of extremity: lower extremity Laterality: right Qualified Code(s): L03.115 - Cellulitis of right lower limb (2) Closed right fibular fracture Code(s): S82.401A - UNSP FRACTURE OF SHAFT OF RIGHT FIBULA, INIT FOR CLOS FX Qualifiers: Encounter type: initial encounter Fibula location: distal Fracture morphology: unspecified fracture morphology Qualified Code(s): S82.831A - Other fracture of upper and lower end of right fibula, initial encounter for closed fracture (3) Friction blisters of the skin Code(s): T14.8XXA - OTHER INJURY OF UNSPECIFIED BODY REGION, INITIAL ENCOUNTER Assessment/Plan Malleolar and distal fibula fractures Possible RLE cellulitis continue zosyn await for identification of the bacteria close watch wound care rest as per the team
[2019-05-16] MEDS: ACETAMINOPHEN 325 MG TABLET (FP) PO PRN (23:00)
[2019-05-17] MEDS ORDERED: DEXTROSE 5%-WATER - 50 ML IVPB ONE ×3 (02:35→18:30)
[2019-05-17] MEDS ORDERED: PIPERACILLIN/TAZOBACTAM 3.375 GM VIAL IVPB ONE ×3 (02:35→18:30)
[2019-05-17] MEDS: PIPERACILLIN/TAZOB 3.375 GM 3.375 GM in DEXTROSE 5%-WATER - 50 ML IVPB SCH ×3 (02:45→18:36)
[2019-05-17 08:02] LABS: ALBUMIN 2.8 g/dl (3.4-5.0); BILIRUBIN,TOTAL 0.5 mg/dl (0.2-1); CALCIUM 8.6 mg/dl (8.5-10); CREATININE 0.5 mg/dl (0.55-1.3); MAGNESIUM 2.1 mg/dL (1.8-2.4); POTASSIUM 3.9 mmol/L (3.5-5.1); TOT PROT 5.9 g/dl (6.4-8.2)
[2019-05-17 08:42] LABS: BASO % 0.3 % (0-2.0); EOS % 4.4 % (0-4.5); HEMATOCRIT 34.3 % (32.4-45.2); HEMOGLOBIN 11.4 GM/dl (10.7-15.3); LYMPH % 22.8 % (8-40); MCH 29.8 pg (25.7-33.7); MCHC 33.3 g/dl (32.0-36.0); MEAN CELL VOLUME 89.6 fl (80-96); MEAN PLT VOLUME 8.6 fl (7.5-11.1); MONO % 9.8 % (3.8-10.2); NEUT % 62.7 % (42.8-82.8); PLATELET COUNT 279 K/MM3 (134-434); RBC 3.83 M/mm3 (3.60-5.2); RDW 12.7 % (11.6-15.6); WHITE BLOOD COUNT 9.3 K/mm3 (4.0-10.8)
[2019-05-17] MEDS: LACTOBACILLUS ACIDOPHILUS 1 TABLET PO SCH (09:58)
[2019-05-17] MEDS: ENOXAPARIN NA (PORCINE) 40 MG/0.4 ML DISP.SYRIN SQ SCH (09:58)
--- NOTE | 2019-05-17 10:55 | PN ---
Physical Exam: SUBJECTIVE: Patient seen and examined. Two days ago patient popped her own blister believing it needed to be exposed to oxygen. Last night she removed the dressing. OBJECTIVE: Vital Signs Period Temp Pulse Resp BP Sys/Valadez Pulse Ox Last 24 Hr 97.7 F-98.5 F 79-98 - 118-147/57-84 98-100 GENERAL: The patient is awake, alert, LUNGS:CTA HEART: Regular rate and rhythm, S1, S2 ABDOMEN: Soft, nontender, nondistended RLE: Significant swelling, now erythematous dorsal aspect, 3+pedal edema, warm to touch; blister sites are exposed, dry, no exudate NEUROLOGICAL: Cranial nerves II through XII grossly intact. PYSCH: Rambling, pressured speech; told staff people are out to kill her Laboratory Results - last 24 hr 05/17/19 05/17/19 07:05 07:05 WBC 9.3 RBC 3.83 Hgb 11.4 Hct 34.3 MCV 89.6 MCH 29.8 MCHC 33.3 RDW 12.7 Plt Count 279 MPV 8.6 Absolute Neuts (auto) 5.9 Neutrophils % 62.7 Lymphocytes % 22.8 Monocytes % 9.8 Eosinophils % 4.4 Basophils % 0.3 Sodium 140 Potassium 3.9 Chloride 107 Carbon Dioxide 28 Anion Gap 5 L BUN 8.0 Creatinine 0.5 L Est GFR (CKD-EPI)AfAm 117.71 Est GFR (CKD-EPI)NonAf 101.56 Random Glucose 95 Calcium 8.6 Magnesium 2.1 Total Bilirubin 0.5 AST 12 L ALT 11 L Alkaline Phosphatase 59 Total Protein 5.9 L Albumin 2.8 L Active Medications Generic Name Dose Route Start Last Admin Trade Name Freq PRN Reason Stop Dose Admin Acetaminophen 650 mg 05/14/19 09:56 05/16/19 23:00 Tylenol - PO 650 mg Q4H PRN Administration PAIN Enoxaparin Sodium 40 mg 05/13/19 18:45 05/17/19 09:58 Lovenox - SQ 40 mg DAILY NINOSKA Administration Piperacillin Sod/Tazobactam 50 mls @ 100 mls/hr 05/13/19 18:00 05/17/19 09:58 Sod 3.375 gm/ Dextrose IVPB 100 mls/hr Q8H-IV NINOSKA Administration Protocol Lactobacillus Acidophilus 1 tab 05/15/19 10:45 05/17/19 09:58 Bacid - PO 1 tab DAILY NINOSKA Administration ASSESSMENT/PLAN 63 year-old female with no reported PMH as she does not see a health care provider regularly. Admitted for right ankle/fib fracture. Right trimalleolar fracture with comminuted distal fibular fracture Severe swelling Large fluid-filled blisters --no weight bearing --worsening signs of infection, continue Zosyn; ID following --seen and evaluated by vascular, no recommendations --ortho Dr. Riddle following --PT evaluation to assess ability to transfer without weight-bearing Paranoid thinking --popped own blister despite being told not to; refuses to keep dressing on infected ankle; told staff people are trying to kill her --see note 10/29/12 visit to ED for past history --psych consult requested FEN Fluids: PO intake adequate Electrolytes: replete as indicated Nutrition: regular diet DVT prophylaxis: subq lovenox D Visit type - Emergency Visit Emergency Visit: Yes ED Registration Date: 05/13/19 Care time: The patient presented to the Emergency Department on the above date and was hospitalized for further evaluation of their emergent condition. - New Patient This patient is new to me today: No - Critical Care Critical Care patient: No
--- NOTE | 2019-05-17 13:25 | PN ---
Progress Note, Physician History of Present Illness: stable no issues xray of the ankle today wound cx noted - Current Medication List Current Medications: Active Medications Acetaminophen (Tylenol -) 650 mg PO Q4H PRN PRN Reason: PAIN Last Admin: 05/16/19 23:00 Dose: 650 mg Enoxaparin Sodium (Lovenox -) 40 mg SQ DAILY NINOSKA Last Admin: 05/17/19 09:58 Dose: 40 mg Piperacillin Sod/Tazobactam (Sod 3.375 gm/ Dextrose) 50 mls @ 100 mls/hr IVPB Q8H-IV NINOSKA; Protocol Last Admin: 05/17/19 09:58 Dose: 100 mls/hr Lactobacillus Acidophilus (Bacid -) 1 tab PO DAILY NINOSKA Last Admin: 05/17/19 09:58 Dose: 1 tab - Objective Vital Signs: Vital Signs Temperature 98.3 F 05/17/19 05:00 Pulse Rate 90 05/17/19 05:00 Respiratory Rate 18 05/17/19 05:00 Blood Pressure 143/73 05/17/19 05:00 O2 Sat by Pulse Oximetry (%) 98 05/17/19 05:00 Constitutional: Yes: No Distress, Calm Cardiovascular: Yes: S1, S2 Respiratory: Yes: Regular, CTA Bilaterally Gastrointestinal: Yes: Normal Bowel Sounds, Soft Labs: CBC, BMP 05/17/19 07:05 05/17/19 07:05 INR, PTT INR 1.18 (0.82-1.09) 05/14/19 07:40
--- NOTE | 2019-05-17 21:24 | PN ---
Progress Note (short form) - Note Progress Note: Pt lying comf in bed. Notes persistent discomfort in the ankle. AF VSS RLE resolving blood blisters persistent erythema dorsum of foot moderate swelling NVID A/p R ankle fracture, fracture blisters, cellulitis -continue abx -continue strict nwb -advised patient ankle is best protected with splinting and padding -pt is refusing splint at this time -advised that immobilization is best to protect the ankle from further soft tissue injury and this risks prolonging her soft tissue swelling and damage -will obtain gravity stress xray to establish ankle stability -elevate -will continue to follow
--- NOTE | 2019-05-17 21:52 | PN ---
Mental Health Exam - Mental Status Exam Cognitive Function: Grossly Intact Patient Appearance: Unkempt Mood: Elated, Apprehensive, Expansive Affect: Labile (tearful during interview. ) Patient Behavior: Crying, Suspicious, Talkative, Cooperative Speech Pattern: Perseverating, Tangential Voice Loudness: Mildly Loud Thought Process: Tangential, Goal Oriented Thought Disorder: Bizarre Hallucinations: Denies Suicidal Ideation: Denies Homicidal Ideation: Denies Insight/Judgement: Fair Sleep: Poorly Appetite: Fair (like celery juice) Muscle strength/Tone: Normal Gait/Station: Deferred
--- NOTE | 2019-05-17 22:04 | PN ---
Progress Note (short form) - Note Progress Note: Ms henson is a 63 yo [place] female who has injuries sustained from fall at [facility], while walking to [facility] to feed Geese. Client lamented that she also had spent hours at her [facility] grave site, wa hope that am. Client has consult called as she told staff last night that people are out to get her. Client stated that she has a "bad night" with severe "moaning" pain, seeing r foot swelling, busted a blister, drinking extra water, needing bathroom assists. She is an avid independent walker, missing this role and exercise. Client denies any psych history, worked as security untill retired some years ago. Client is traumatized by of his adult schizophrenic son in [facility] custody, in 2012. Patient has mildly pressured speech, rambling conversation, poor ability to trust, labile and tearful, but concentration to read. Denies si, hi ah or VH. No delusion elicited. Problem List - Problems (1) Altered mood associated with tawny Assessment/Plan: Client is offered pharmacological treatment but refused at present. Client recommend to follow a talk therapist in community to deal with traumatic family issues. May offer trazadone 50mg to help sleep. ( at home she drinks celery juice for insomnia). Functional with her behaviour, reduced judgment. Has some social needs re poverty, unable to sustain on fixed social security income. Daughter is supportive. Code(s): F30.9 - MANIC EPISODE, UNSPECIFIED
[2019-05-18] MEDS ORDERED: PIPERACILLIN/TAZOBACTAM 3.375 GM VIAL IVPB ONE ×2 (01:00→09:46)
[2019-05-18] MEDS ORDERED: DEXTROSE 5%-WATER - 50 ML IVPB ONE ×2 (01:00→09:46)
[2019-05-18] MEDS: PIPERACILLIN/TAZOB 3.375 GM 3.375 GM in DEXTROSE 5%-WATER - 50 ML IVPB SCH ×2 (01:38→09:54)
[2019-05-18] MEDS: ACETAMINOPHEN 325 MG TABLET (FP) PO PRN (03:49)
[2019-05-18] MEDS: LACTOBACILLUS ACIDOPHILUS 1 TABLET PO SCH (09:54)
[2019-05-18] MEDS: ENOXAPARIN NA (PORCINE) 40 MG/0.4 ML DISP.SYRIN SQ SCH (09:54)
[2019-05-18 14:19] VITALS: BP 126/69; PULSE 89; TEMP 98.4
--- NOTE | 2019-05-18 14:25 | PN ---
Progress Note, Physician History of Present Illness: stable still leg swollen unable to bear weight - Current Medication List Current Medications: Active Medications Acetaminophen (Tylenol -) 650 mg PO Q4H PRN PRN Reason: PAIN Last Admin: 05/18/19 03:49 Dose: 650 mg Enoxaparin Sodium (Lovenox -) 40 mg SQ DAILY INNOSKA Last Admin: 05/18/19 09:54 Dose: 40 mg Piperacillin Sod/Tazobactam (Sod 3.375 gm/ Dextrose) 50 mls @ 100 mls/hr IVPB Q8H-IV NINOSKA; Protocol Last Admin: 05/18/19 09:54 Dose: 100 mls/hr Lactobacillus Acidophilus (Bacid -) 1 tab PO DAILY NINOSKA Last Admin: 05/18/19 09:54 Dose: 1 tab - Objective Vital Signs: Vital Signs Temperature 98.4 F 05/18/19 14:00 Pulse Rate 89 05/18/19 14:00 Respiratory Rate 18 05/18/19 14:00 Blood Pressure 126/69 05/18/19 14:00 O2 Sat by Pulse Oximetry (%) 97 05/18/19 14:00 Constitutional: Yes: No Distress, Calm Cardiovascular: Yes: Regular Rate and Rhythm Respiratory: Yes: Regular, CTA Bilaterally Gastrointestinal: Yes: Normal Bowel Sounds, Soft Musculoskeletal: Yes: WNL Extremities: Yes: Other Wound/Incision: Yes: Clean/Dry, Open to air Neurological: Yes: Alert, Oriented Psychiatric: Yes: Alert, Oriented Labs: CBC, BMP 05/17/19 07:05 05/17/19 07:05 INR, PTT INR 1.18 (0.82-1.09) 05/14/19 07:40 Assessment/Plan - Problems (1) Cellulitis Code(s): L03.90 - CELLULITIS, UNSPECIFIED Qualifiers: Site of cellulitis: extremity Site of cellulitis of extremity: lower extremity Laterality: right Qualified Code(s): L03.115 - Cellulitis of right lower limb (2) Closed right fibular fracture Code(s): S82.401A - UNSP FRACTURE OF SHAFT OF RIGHT FIBULA, INIT FOR CLOS FX Qualifiers: Encounter type: initial encounter Fibula location: distal Fracture morphology: unspecified fracture morphology Qualified Code(s): S82.831A - Other fracture of upper and lower end of right fibula, initial encounter for closed fracture (3) Friction blisters of the skin Code(s): T14.8XXA - OTHER INJURY OF UNSPECIFIED BODY REGION, INITIAL ENCOUNTER Assessment/Plan Malleolar and distal fibula fractures Possible RLE cellulitis continue zosyn 14 days minimal also add levaquin for 2 weeks wound care rest as per the team
--- NOTE | 2019-05-18 14:42 | DS ---
Physical Exam: SUBJECTIVE: Patient seen and examined OBJECTIVE: Vital Signs Period Temp Pulse Resp BP Sys/Valadez Pulse Ox Last 24 Hr 97.8 F-98.4 F 67-89 17-19 114-137/61-86 97-100 PHYSICAL EXAM GENERAL: The patient is awake, alert, LUNGS:CTA HEART: Regular rate and rhythm, S1, S2 ABDOMEN: Soft, nontender, nondistended RLE: Significant swelling, now erythematous dorsal aspect, 3+pedal edema, warm to touch; blister sites are exposed, dry, no exudate NEUROLOGICAL: Cranial nerves II through XII grossly intact. PYSCH: Rambling, pressured speech; told staff people are out to kill her LABS CBCD WBC 9.3 K/mm3 (4.0-10.8) 05/17/19 07:05 RBC 3.83 M/mm3 (3.60-5.2) 05/17/19 07:05 Hgb 11.4 GM/dl (10.7-15.3) 05/17/19 07:05 Hct 34.3 % (32.4-45.2) 05/17/19 07:05 MCV 89.6 fl (80-96) 05/17/19 07:05 MCHC 33.3 g/dl (32.0-36.0) 05/17/19 07:05 RDW 12.7 % (11.6-15.6) 05/17/19 07:05 Plt Count 279 K/MM3 (134-434) 05/17/19 07:05 MPV 8.6 fl (7.5-11.1) 05/17/19 07:05 CMP Sodium 140 mmol/L (136-145) 05/17/19 07:05 Potassium 3.9 mmol/L (3.5-5.1) 05/17/19 07:05 Chloride 107 mmol/L (98-107) 05/17/19 07:05 Carbon Dioxide 28 mmol/L (21-32) 05/17/19 07:05 Anion Gap 5 MMOL/L (8-16) L 05/17/19 07:05 BUN 8.0 mg/dl (7-18) 05/17/19 07:05 Creatinine 0.5 mg/dl (0.55-1.3) L 05/17/19 07:05 Calcium 8.6 mg/dl (8.5-10) 05/17/19 07:05 Total Bilirubin 0.5 mg/dl (0.2-1) 05/17/19 07:05 AST 12 U/L (15-37) L 05/17/19 07:05 ALT 11 U/L (13-61) L 05/17/19 07:05 Alkaline Phosphatase 59 U/L (45-117) 05/17/19 07:05 Total Protein 5.9 g/dl (6.4-8.2) L 05/17/19 07:05 Albumin 2.8 g/dl (3.4-5.0) L 05/17/19 07:05 HOSPITAL COURSE: Date of Admission:05/13/19 Date of Discharge: 05/18/19 Pre hospital course 63 year-old female with no reported PMH as she does not see a health care provider regularly. On 05/09/19 patient tripped and fell while walking in a park and felt immediate pain to her right ankle. She did not seek immediate care and continued to walk/weight bear on the ankle. On 05/10, patient presented to the [facility] ED and it was noted at that time that she had a blister on her right lateral ankle and lower leg which the patient attributed to friction from her shoe. Xray showed a distal fibular fracture with lateral swelling, and no soft tissue air. Duplex was negative for RLE DVT. The RLE was wrapped with justice bandage, patient was given crutches, told not to weight bear, and to follow up with an orthopedist. Patient continued wo walk/weight bear on the RLE on on she saw ortho Dr. Riddle in his office. He observed moderate to severe swelling with blood blisters both medially and laterally about the ankle. He treated her and then referred her to the [facility] ED for admission as patient was unable to protect her ankle and given the risk of skin breakdown and infection. ER course (1) CT RLE: trimalleolar fracture of the right ankle with comminuted distal fibular fracture and chip fractures of the medial and posterior malleoli; no evidence of subq emphysema Subsequent hospital course Right trimalleolar fracture with comminuted distal fibular fracture Cellulitis --seen and evaluated by surgery, no intervention until infection has cleared --no weight bearing --has been treated with Zosyn for cellulitis, needs additional 12 days of IV therapy --PICC line placed --will follow up with Dr. Riddle in his office on 05/20 Altered mood associated with tawny --popped own blister despite being told not to; refused to keep dressing on infected ankle; told staff people are trying to kill her --seen and evaluated by psych; patient declined offer of pharmacological treatment; may offer trazadone 50mg for sleep; patient drinks celery juice for insomnia at home Dispo: to [facility] for completion of IV abx therapy; close follow up with ortho re: surgical stabilization 05/19: Discussed with JOELLE Mayen; will arrange for patient to see Dr. Riddle his office tomorrow Minutes to complete discharge: 35 Discharge Summary Problems reviewed: Yes Reason For Visit: FRICTION BLISTERS OF SKIN,CLOSED FX OF RIGHT FIBUL Current Active Problems Altered mood associated with tawny (Acute) Cellulitis (Acute) Closed right fibular fracture (Acute) Friction blisters of the skin (Acute) Condition: Stable - Instructions Diet, Activity, Other Instructions: Patient needs 12 days of IV antibiotic therapy, Zosyn and levofloxacin. She is STRICTLY NON WEIGHT-BEARING. She needs to see Dr. Riddle, orthopedist, in 12 days. Please make necessary arrangements. Referrals: Romel Riddle MD [Staff Physician] - Disposition: LONG TERM FACILITY - Home Medications Comprehensive Discharge Medication List: Ambulatory Orders Lactobacillus Acidophilus [Bacid -] 1 tab PO DAILY tab 05/18/19 Piperacillin/Tazob 3.375 gm [Zosyn -] 3.375 gm IVPB Q8H-IV #36 vial 05/18/19 levoFLOXacin 750 MG IVPB [Levaquin 750 mg Premixed Ivpb -] 750 mg IVPB DAILY # 12 bag 05/18/19 This patient is new to me today: No Emergency Visit: Yes ED Registration Date: 05/13/19 Care time: The patient presented to the Emergency Department on the above date and was hospitalized for further evaluation of their emergent condition. Critical Care patient: No - Discharge Referral Referred to [facility] Med [facility].C[facility] No Physician Referral: Clifford Richardson MD ([facility])
== END 2019-05-18 17:11 | DRG 563 ==
LOC: FER 13:10 → FM/S 15:05
PROVIDERS: ADMIT Internal Medicine; ATTEND Nurse Practitioner Acute Care
PROC: 02HV33Z Insertion of Infusion Device into Superior Vena Cava, Percutaneous Approach (ICD-10-PCS; principal; 2019-05-18)
DX: S82.451A Displaced comminuted fracture of shaft of right fibula, initial encounter for closed fracture (principal); L03.115 Cellulitis of right lower limb; F30.9 Manic episode, unspecified; S82.851A Displaced trimalleolar fracture of right lower leg, initial encounter for closed fracture; S90.521A Blister (nonthermal), right ankle, initial encounter; W19.XXXA Unspecified fall, initial encounter; Y93.89 Activity, other specified; Y92.830 Public park as the place of occurrence of the external cause; Y99.8 Other external cause status
CPT/HCPCS: 36415; 36569; 71045-TC-FY; 73590-TC-RT-FY; 73610-TC-RT-FY; 73630-TC-RT-FY; 73700-TC-RT; 77001-TC-FY; 80048; 80053; 83735; 85025; 85610; 85730; 87070; 87186; 87205; 90715; 93005; 93971-TC; 97116-GP; 97162-GP; 99282-25; 99285-25; C1751